=== PATIENT | female | born 1940 | race Caucasian/White ===

== ENCOUNTER 2022-04-20 10:49 | Observation (INO) ==
[2022-04-20 11:01] VITALS: BMI 29.1
[2022-04-20 11:43] LABS: BASOPHILS % (AUTO) 0.5 % (0.2-1.0); EOSINOPHILS # (AUTO) 0.1 x10^3/uL (0.0-0.2); EOSINOPHILS % (AUTO) 0.9 % (0.9-2.9); HEMATOCRIT 21.5 % (36.0-47.0); HEMOGLOBIN 7.3 g/dL (12.0-16.0); LYMPHOCYTES # (AUTO) 1.8 X10^3/uL (1.3-2.9); LYMPHOCYTES % (AUTO) 19.1 % (21.0-51.0); MEAN CORPUSCULAR HEMOGLOBIN 31.8 pg (27.0-34.0); MEAN CORPUSCULAR HGB CONC 33.8 g/dL (33.0-35.0); MEAN CORPUSCULAR VOLUME 94.1 fL (80.0-100.0); MEAN PLATELET VOLUME 7.7 fL (7.4-11.0); MONOCYTES # (AUTO) 0.8 x10^3/uL (0.3-0.8); MONOCYTES % (AUTO) 9.2 % (0.0-13.0); NEUTROPHILS # (AUTO) 6.5 x10^3/uL (2.2-4.8); NEUTROPHILS % (AUTO) 70.3 % (42.0-75.0); RED BLOOD COUNT 2.29 X10^6/uL (3.5-5.4); RED CELL DISTRIBUTION WIDTH 15.3 % (11.6-16.5); WHITE BLOOD COUNT 9.2 X10^3/uL (3.6-10.0)
[2022-04-20 11:53] LABS: ALBUMIN 2.9 g/dL (3.4-5.0); CALCIUM 7.7 mg/dL (8.5-10.1); CARBON DIOXIDE 31.5 mmol/L (21-32); COR CA(FOR HYPOALB) 8.6 mg/dL (8.5-10.1); CREATININE 1.14 mg/dL (0.55-1.02); TOTAL PROTEIN 5.5 g/dL (6.4-8.2)
[2022-04-20] MEDS: NS 1,000 ML IV 1,000 ML IV SCH (18:14)
[2022-04-20] MEDS: ZOFRAN INJ 4 MG VIAL IVP PRN (19:20)
[2022-04-20] MEDS ORDERED: BENADRYL CAP/TAB 25 MG PO PRN (19:25)
[2022-04-20] MEDS ORDERED: PERCOCET TAB 5/325 MG PO PRN (19:25)
[2022-04-20 20:13] LABS: HEMATOCRIT 21.4 % (36.0-47.0); HEMOGLOBIN 7.1 g/dL (12.0-16.0)
[2022-04-20] MEDS: PEPCID 20 MG VIAL 20 MG in NS 50 ML IV 50 ML IV SCH (21:17)
[2022-04-20] MEDS: PROTONIX INJ 40 MG VIAL IVP SCH (21:17)
[2022-04-20] MEDS: RESTORIL CAP 15 MG PO SCH (21:17)
[2022-04-20] MEDS ORDERED: PHENERGAN INJ 25 MG IM PRN (21:22)
[2022-04-20] MEDS: ATIVAN TAB 1 MG PO SCH (22:30)
[2022-04-21 05:58] LABS: BASOPHILS % (AUTO) 0.4 % (0.2-1.0); EOSINOPHILS # (AUTO) 0.1 x10^3/uL (0.0-0.2); EOSINOPHILS % (AUTO) 0.6 % (0.9-2.9); LYMPHOCYTES # (AUTO) 2.2 X10^3/uL (1.3-2.9); MEAN CORPUSCULAR HEMOGLOBIN 31.6 pg (27.0-34.0); MEAN CORPUSCULAR HGB CONC 33.9 g/dL (33.0-35.0); MEAN CORPUSCULAR VOLUME 93.2 fL (80.0-100.0); MEAN PLATELET VOLUME 8.4 fL (7.4-11.0); MONOCYTES # (AUTO) 0.7 x10^3/uL (0.3-0.8); NEUTROPHILS # (AUTO) 6.6 x10^3/uL (2.2-4.8); RED BLOOD COUNT 2.15 X10^6/uL (3.5-5.4); RED CELL DISTRIBUTION WIDTH 14.8 % (11.6-16.5); WHITE BLOOD COUNT 9.6 X10^3/uL (3.6-10.0)
[2022-04-21 06:03] LABS: ALANINE AMINOTRANSFERASE 16 Units/L (12-78); ALBUMIN 2.8 g/dL (3.4-5.0); ALKALINE PHOSPHATASE 33 Units/L (46-116); ASPARTATE AMINO TRANSFERASE 23 Units/L (15-37); BLOOD UREA NITROGEN 15 mg/dL (7-18); CALCIUM 7.8 mg/dL (8.5-10.1); CARBON DIOXIDE 31.4 mmol/L (21-32); CHLORIDE 108 mmol/L (98-107); COR CA(FOR HYPOALB) 8.8 mg/dL (8.5-10.1); CREATININE 0.91 mg/dL (0.55-1.02); SODIUM 145 mmol/L (136-145); TOTAL PROTEIN 5.2 g/dL (6.4-8.2); eGFR NON BLACK RACES > 60 (>60)
[2022-04-21 06:05] LABS: HEMOGLOBIN 6.8 g/dL (12.0-16.0)
[2022-04-21] MEDS: ATIVAN TAB 1 MG PO SCH ×2 (08:27→22:38)
[2022-04-21] MEDS ORDERED: DILTIAZEM HCL 120 MG PO SCH (09:00)
[2022-04-21] MEDS ORDERED: PATIENT'S HOME MEDICATION (Multivitamin Tablet) PO SCH (09:00)
[2022-04-21] MEDS ORDERED: MIRALAX POWDER (255 GRAMS BTL) PO SCH (09:00)
[2022-04-21] MEDS: PEPCID 20 MG VIAL 20 MG in NS 50 ML IV 50 ML IV SCH ×2 (09:27→20:14)
[2022-04-21] MEDS: PROTONIX INJ 40 MG VIAL IVP SCH ×2 (09:30→20:14)
--- NOTE | 2022-04-21 09:56 | DR.GIBLEED ---
HPI Time Seen Time Seen by Provider: 04/20/22 13:39 Primary Care Physician Primary Care Physician: VIVID Complaints Chief Complaint:: PT STARTED HAVING NAUSEA, VOMITING AND DIARRHEA ON 04/16/22. ON 04/18/22 SHE STARTED PASSING BRIGHT RED BLOOD FROM HER RECTUM AND WAS ADMITTED TO [facility]. PT'S HGB WENT FROM 11 TO 7.0 AND SHE WAS GIVEN ONE UNIT OF BLOOD. PT WAS DISCHARGED HOME YESTERDAY AND BLEEDING STARTED BACK THIS MORNING. DENIES ANY PAIN. COVID-19 Coronavirus risk:travel/contact w/high risk person: No Has patient experienced Coronavirus symptoms: No Source History Provided: Patient Mode of Arrival Mode of Arrival: Wheelchair Timing Onset of Chief Complaint: 04/16/22 Quality Vomitus: None Stools: Bright Red Blood PMH PMH Past Medical History: Yes Past Medical History: Anxiety, Arthritis, Depression, Dyslipidemia and GERD Past Medical History Comment: AFIB Past Surgical History: Yes Surgical History: Appendectomy, , Cholecystectomy, Hysterectomy and Other Past Surgical History Comment: PACEMAKER Family History History of Family Medical Conditions: No Family Medical History: Hypertension Social History Does patient currently use any type of tobacco product: No Have you used tobacco products in the last 12 months: No Type of Tobacco Use: None Does any household member use tobacco: No Alcohol Use: None Do you use any recreational Drugs:: No Lives With: Other Lives Where: Assisted Care Travel Risk Coronavirus risk:travel/contact w/high risk person: No Has patient experienced Coronavirus symptoms: No Infectious screening In the last 2 months have you had wt loss of >10#?: NO Have you had fever, night sweats or hemotysis?: No Have you traveled outside the country in the last 6 months?: No Isolation: Standard PE Vital Signs Vitals: Temperature 98.5 F Pulse Rate 71 Respiratory Rate 26 Blood Pressure 151/63 O2 Sat by Pulse Oximetry 98 ROR Labs Reviewed Result Diagrams: 04/21/22 05:14 04/21/22 05:14 Laboratory: WBC 9.2 X10^3/uL (3.6-10.0) 04/20/22 11:30 RBC 2.29 X10^6/uL (3.5-5.4) L 04/20/22 11:30 Hgb 7.3 g/dL (12.0-16.0) L 04/20/22 11:30 Hct 21.5 % (36.0-47.0) L 04/20/22 11:30 MCV 94.1 fL (80.0-100.0) 04/20/22 11:30 MCH 31.8 pg (27.0-34.0) 04/20/22 11:30 MCHC 33.8 g/dL (33.0-35.0) 04/20/22 11:30 RDW 15.3 % (11.6-16.5) 04/20/22 11:30 Plt Count 183 X10^3/uL (150.0-450.0) 04/20/22 11:30 MPV 7.7 fL (7.4-11.0) 04/20/22 11:30 Neut % (Auto) 70.3 % (42.0-75.0) 04/20/22 11:30 Lymph % (Auto) 19.1 % (21.0-51.0) L 04/20/22 11:30 [place] % (Auto) 9.2 % (0.0-13.0) 04/20/22 11:30 Eos % (Auto) 0.9 % (0.9-2.9) 04/20/22 11:30 Baso % (Auto) 0.5 % (0.2-1.0) 04/20/22 11:30 Neut # (Auto) 6.5 x10^3/uL (2.2-4.8) H 04/20/22 11:30 Lymph # (Auto) 1.8 X10^3/uL (1.3-2.9) 04/20/22 11:30 [place] # (Auto) 0.8 x10^3/uL (0.3-0.8) 04/20/22 11:30 Eos # (Auto) 0.1 x10^3/uL (0.0-0.2) 04/20/22 11:30 Baso # (Auto) 0.0 X10^3/uL (0.0-0.1) 04/20/22 11:30 Absolute Nucleated RBC 0.3 /100WBC 04/20/22 11:30 Sodium 146 mmol/L (136-145) H 04/20/22 11:30 Corrected Sodium 146 mmol/L (136-145) H 04/20/22 11:30 Potassium 3.5 mmol/L (3.5-5.1) 04/20/22 11:30 Chloride 111 mmol/L (98-107) H 04/20/22 11:30 Carbon Dioxide 31.5 mmol/L (21-32) 04/20/22 11:30 BUN 20 mg/dL (7-18) H 04/20/22 11:30 Creatinine 1.14 mg/dL (0.55-1.02) H 04/20/22 11:30 Est GFR (MDRD) Af Amer 58 (>60) L 04/20/22 11:30 Est GFR (MDRD) Non-Af 48 (>60) L 04/20/22 11:30 Glucose 117 mg/dL (65-99) H 04/20/22 11:30 Calcium 7.7 mg/dL (8.5-10.1) L 04/20/22 11:30 Corrected Calcium 8.6 mg/dL (8.5-10.1) 04/20/22 11:30 Total Bilirubin 0.40 mg/dL (0.2-1.0) 04/20/22 11:30 AST 21 Units/L (15-37) 04/20/22 11:30 ALT 17 Units/L (12-78) 04/20/22 11:30 Alkaline Phosphatase 36 Units/L (46-116) L 04/20/22 11:30 Total Protein 5.5 g/dL (6.4-8.2) L 04/20/22 11:30 Albumin 2.9 g/dL (3.4-5.0) L 04/20/22 11:30 Globulin 2.6 g/dL (2.5-4.5) 04/20/22 11:30 Albumin/Globulin Ratio 1.1 Ratio (1.1-2.1) 04/20/22 11:30 Opioid Opioid Risk Tool Age (Ulises box if 16-45): No History of Preadolescent Sexual Abuse: No Total: 0 Total Score Risk Category: Low Risk Copyright: Deni CASTILLO predicting aberrant behaviors Discharge Plan Diagnosis Discharge Problem: Acute lower gastrointestinal bleeding Discharge Plan Patient Disposition: 09 ADMITTED INPATIENT Condition: Stable
[2022-04-21] MEDS: ZOFRAN INJ 4 MG VIAL IVP PRN ×2 (11:35→20:14)
[2022-04-21] MEDS ORDERED: DIPRIVAN VIAL 20 ML ONE (12:19)
[2022-04-21] MEDS ORDERED: PEPCID 20 MG VIAL ONE (12:27)
[2022-04-21] MEDS ORDERED: REGLAN INJ 10 MG VIAL ONE (12:29)
--- NOTE | 2022-04-21 13:24 | DR.H&P ---
H&P - History & Physical for Day of: H&P Date: 04/20/22 - Chief Complaint Chief Complaint: NAUSEA, VOMITING, DIARRHEA, RECTAL BLEEDING - History of Present Illness History of Present Illness: IS AN 82 YEAR OLD WHITE FEMALE. SHE PRESE NTED TO THE ER WITH COMPLAINTS OF NAUSEA, VOMITING, AND DIARRHEA SINCE 04/16/22. PATIENTS DAUGHTER REPORTS THAT ON 04/18/22, PATIENT BEGAN TO PASS BRIGHT RED BLOOD FROM HER RECTUM. SHE WAS ADMITTED TO [facility] AND WAS TRANSFUSED WITH 1 UNIT OF PACKED RED BLOOD CELLS DUE TO HEMOGLOBIN DROPPING FROM 11 TO 7.0. HER HEMOGLOBIN INCREASED TO 7.8 AND HEMATOCRIT INCREASED TO 23.2. FOLLOWING TRANSFUSION, PATIENT WAS DISCHARGED HOME AND INSTRUCTED TO FOLLOW-UP WITH GASTROENTEROLOGY. PATIENTS DAUGTER REPORTS THAT AFTER RETURNING HOME, PATIENT CONTINUED TO PASS BRIGHT RED BLOOD FROM THE RECTUM. PATIENT COMPLAINED OF INCREASED WEAKNESS, FATIGUE, AND NAUSEA, BUT DENIED PAIN. HER PMH INCLUDES: ARTHRITIS, ANXIETY, DEPRESSION, DYSLIPIDEMIA, GERD, A-FIB, APPENDECTOMY, C- SECTION, CHOLECYSTECTOMY, HYSTERECTOMY, AND PACEMAKER. ON ARRIVAL TO THE HOSPITAL, HER VITALS WERE 98.5-91-22-99%-175/75. LABS WERE OBTAINED. WBC 9.2, RBC 2.29, HGB 7.3, HCT 21.5, PLT COUNT 183, SODIUM 146, POTASSIUM 3.5, CHLORIDE 111, BUN 20, CREATININE 1.14, GLUCOSE 117, CALCIUM 7.7, TOTAL BILI 0.40, AST 21, ALT 17, ALK PHOS 36, TOTAL PROTEIN 5.5, ALBUMIN 2.9. DECISION WAS MADE TO ADMIT PATIENT TO THE HOSPITAL OBSERVATION STATUS FOR TREATMENT OF ACUTE ANEMIA, GI BLEED. WE WILL CONSULT FOR POSSIBLE ENDOSCOPY. SHE WAS STARTED ON NORMAL SALINE AT KVO, PEPCID 20MG IV Q12H, PROTONIX 40MG IV BID, PHENERGAN 12.5MG IM Q6H PRN, AND ZOFRAN 4MG IV Q6H PRN. HER HOME MEDICATIONS OF BUMEX, COREG, CARDIZEM, COLACE, ATIVAN, ANTIVERT, PERCOCET, MIRALAX, POTASSIUM CHLORIDE ZOLOFT, AND RESTORIL WERE RESUMED. OTHERWISE, WE WILL MONITOR H&H AND TRANSFUSE TWO UNITS OF PACKED RED BLOOD CELLS IF HEMOGLOBIN DROPS BELOW 7.0. TIME SPENT ON CLINICAL ASSESSMENT, REVIWING LABS AND IMAGING, DECISION MAKING, AND DOCUMENTA TION GREATER THAN 75 MINUTES. AT 20:00 ON 04/20, HEMOGLOBIN WAS 7.1, HEMATOCRIT WAS 21.4. AT 05:14 ON 04/21/22, HEMOGLOBIN HAD DROPPED TO 6.8, HEMATOCRIT DROPPED TO 20.0. WE WILL TRANSFUSE TWO UNITS OF PACKED RED BLOOD CELLS TODAY. - Past Medical History Past Medical History: Dyslipidemia, Depression, Anxiety, GERD, Arthritis Additional Medical History: A-FIB - Past Surgical History Surgical History: Appendectomy, Cholecystectomy, , Hysterectomy, Other - Family History Family Medical History: Hypertension - Social History Does patient currently use any type of tobacco product: No Have you used tobacco products in the last 12 months: No Type of Tobacco Use: None Does any household member use tobacco: No Alcohol Use: None Drug Use: None - Medications Home Medications: amitriptyline Allergy (Verified 04/20/22 11:01) lorazepam [From Ativan] Adverse Reaction (Verified 04/20/22 11:01) CONTINUE taking the following medications aspirin 81 mg tablet 81 mg PO DAILY 04/20/22 [History] bumetanide 1 mg tablet 1 mg PO DAILY 04/20/22 [History] carvedilol 3.125 mg tablet (Coreg) 3.125 mg PO DAILY 04/20/22 [History] diclofenac 1.5 % solution-lidocaine 3.88 % cream-tape in topical kit 1 ea topical DAILY 04/20/22 [History] diltiazem HCl 120 mg tablet (Cardizem) 120 mg PO DAILY 04/20/22 [History] diphenhydramine HCl 25 mg capsule (Benadryl) 25 mg PO Q4H PRN 04/20/22 [History] docusate sodium 100 mg capsule (Colace) 100 mg PO DAILY 04/20/22 [History] famotidine 40 mg tablet (Pepcid) 40 mg PO BID 04/20/22 [History] lorazepam 1 mg tablet (Ativan) 1 mg PO BID 04/20/22 [History] meclizine 25 mg tablet 25 mg PO DAILY 04/20/22 [History] multivitamin 1 tab PO DAILY 04/20/22 [History] omeprazole 20 mg capsule,delayed release 20 mg PO DAILY 04/20/22 [History] oxycodone-acetaminophen 5 mg-325 mg tablet 1 tab PO Q4HR PRN 04/20/22 [History] polyethylene glycol 3350 17 gram/dose oral powder (Miralax) 17 g PO DAILY 04/20/22 [History] potassium chloride 10 mEq tablet,extended release 10 meq PO DAILY 04/20/22 [H istory] sertraline 100 mg tablet (Zoloft) 100 mg PO DAILY 04/20/22 [History] temazepam 15 mg capsule 15 mg PO HS 04/20/22 [History] - Review of Systems Constitutional: See HPI, Weakness. denies: Fever, Chills Eyes: No Symptoms Reported ENT: No Symptoms Reported Respiratory: No Symptoms Reported Cardiovascular: Light Headedness Gastrointestinal: See HPI, Nausea, Vomiting, Diarrhea, Hematochezia Genitourinary: No Symptoms Reported Musculoskeletal: No Symptoms Reported Skin: No Symptoms Reported Neurological: Weakness - Physical Exam Vital Signs: Temperature 97.5 F Pulse Rate [Bilateral Radial] 76 Pulse Rate 71 Respiratory Rate 20 Blood Pressure [Right Arm] 187/77 Blood Pressure 151/63 O2 Sat by Pulse Oximetry 95 Oriented: Normal Eyes: Normal Ear: Normal Nose: Normal Throat: Normal Respiratory: Clear Throughout Cardiovascular: Normal : Normal Auscultation: Bowel Sounds: Normal Palpation: Normal Tenderness: Normal Skin: Decreased Turgur Musculoskeletal: Normal Psychiatric: Normal Mood Description: Calm Affect: Normal Speech Pattern: Clear - Assessment/Plan (1) Symptomatic anemia Status: Acute Plan: ADMIT, MONITOR H&H, CONSULT GASTROENTEROLOGY, NORMAL SALINE AT KVO, PEPCID 20MG IV Q12H, PROTONIX 40MG IV BID, PHENERGAN 12.5MG IM Q6H PRN, AND ZOFRAN 4MG IV Q6H PRN. HER HOME MEDICATIONS OF BUMEX, COREG, CARDIZEM, COLACE, ATIVAN, ANTIVERT, PERCOCET, MIRALAX, POTASSIUM CHLORIDE ZOLOFT, AND RESTORIL WERE RESUMED. (2) Acute lower gastrointestinal bleeding Status: Acute (3) Dehydration, mild Status: Acute (4) Nausea Status: Acute (5) Anxiety and depression Status: Chronic (6) GERD (gastroesophageal reflux disease) Qualifiers: Esophagitis presence: esophagitis presence not specified Qualified Code(s): K21.9 - Gastro-esophageal reflux disease without esophagitis Status: Chronic (7) Hyperlipidemia Qualifiers: Hyperlipidemia type: mixed hyperlipidemia Qualified Code(s): E78.2 - Mixed hyperlipidemia Status: Chronic (8) Chronic a-fib Status: Chronic - Allergies Allergies/Adverse Reactions: Allergies Allergy/AdvReac Type Severity Reaction Status Date / Time amitriptyline Allergy Verified 04/20/22 11:01 lorazepam [From Ativan] AdvReac Verified 04/20/22 11:01
[2022-04-21] MEDS ORDERED: ZOLOFT ONE (15:12)
[2022-04-21] MEDS: BUMEX TAB 1 MG PO SCH ×3 (15:15→20:22)
[2022-04-21] MEDS: CARDIZEM CD 120 MG 24-HR PO SCH ×3 (15:16→20:22)
[2022-04-21] MEDS: COREG TAB 3.125 MG PO SCH ×2 (15:16→15:43)
[2022-04-21] MEDS: ANTIVERT TAB 25 MG PO SCH (15:42)
[2022-04-21] MEDS: MICRO K EXTEN CAP 10 MEQ PO SCH (15:43)
[2022-04-21] MEDS: COLACE CAP 100 MG PO SCH (15:43)
[2022-04-21] MEDS: TAB-A-VITE PO SCH (17:54)
[2022-04-21] MEDS: ZOLOFT PO SCH (17:55)
[2022-04-21] MEDS: REGLAN INJ 10 MG VIAL IVP SCH ×3 (18:09→22:43)
[2022-04-21] MEDS: NS 1,000 ML IV 1,000 ML IV SCH (18:39)
[2022-04-21] MEDS: RESTORIL CAP 15 MG PO SCH (20:15)
[2022-04-22 02:24] LABS: HEMATOCRIT 29.5 % (36.0-47.0)
[2022-04-22 06:13] LABS: BASOPHILS % (AUTO) 0.3 % (0.2-1.0); EOSINOPHILS # (AUTO) 0.1 x10^3/uL (0.0-0.2); EOSINOPHILS % (AUTO) 0.5 % (0.9-2.9); HEMATOCRIT 29.7 % (36.0-47.0); HEMOGLOBIN 10.2 g/dL (12.0-16.0); LYMPHOCYTES # (AUTO) 2.5 X10^3/uL (1.3-2.9); MEAN CORPUSCULAR HEMOGLOBIN 28.2 pg (27.0-34.0); MEAN CORPUSCULAR HGB CONC 34.3 g/dL (33.0-35.0); MEAN CORPUSCULAR VOLUME 82.4 fL (80.0-100.0); MEAN PLATELET VOLUME 7.6 fL (7.4-11.0); MONOCYTES # (AUTO) 0.9 x10^3/uL (0.3-0.8); MONOCYTES % (AUTO) 7.9 % (0.0-13.0); NEUTROPHILS # (AUTO) 8.2 x10^3/uL (2.2-4.8); NEUTROPHILS % (AUTO) 70.3 % (42.0-75.0); RED BLOOD COUNT 3.61 X10^6/uL (3.5-5.4); RED CELL DISTRIBUTION WIDTH 24.2 % (11.6-16.5); WHITE BLOOD COUNT 11.7 X10^3/uL (3.6-10.0)
[2022-04-22 06:27] LABS: ALKALINE PHOSPHATASE 37 Units/L (46-116); ASPARTATE AMINO TRANSFERASE 29 Units/L (15-37); BLOOD UREA NITROGEN 13 mg/dL (7-18); CALCIUM 7.5 mg/dL (8.5-10.1); CHLORIDE 102 mmol/L (98-107); SODIUM 140 mmol/L (136-145); eGFR NON BLACK RACES > 60 (>60)
[2022-04-22 06:43] LABS: ANISOCYTOSIS 3+; PLATELET MORPHOLOGY COMMENT NORMAL (NORMAL)
[2022-04-22 07:01] LABS: ALANINE AMINOTRANSFERASE 22 Units/L (12-78); ALBUMIN 2.9 g/dL (3.4-5.0); CARBON DIOXIDE 31.5 mmol/L (21-32); COR CA(FOR HYPOALB) 8.4 mg/dL (8.5-10.1); CREATININE 0.94 mg/dL (0.55-1.02); TOTAL PROTEIN 5.4 g/dL (6.4-8.2)
[2022-04-22] MEDS: ANTIVERT TAB 25 MG PO SCH (09:26)
[2022-04-22] MEDS: ATIVAN TAB 1 MG PO SCH ×2 (09:27→20:53)
[2022-04-22] MEDS: MIRALAX POWDER (1 DOSE 17 G) PO SCH (09:27)
[2022-04-22] MEDS: BUMEX TAB 1 MG PO SCH (09:27)
[2022-04-22] MEDS: COLACE CAP 100 MG PO SCH (09:27)
[2022-04-22] MEDS: PEPCID 20 MG VIAL 20 MG in NS 50 ML IV 50 ML IV SCH ×2 (09:35→20:53)
[2022-04-22] MEDS: PROTONIX INJ 40 MG VIAL IVP SCH ×2 (09:37→20:53)
[2022-04-22] MEDS: ZOFRAN INJ 4 MG VIAL IVP PRN (09:38)
[2022-04-22] MEDS: REGLAN INJ 10 MG VIAL IVP SCH ×4 (09:38→20:53)
[2022-04-22] MEDS: MICRO K EXTEN CAP 10 MEQ PO SCH (09:40)
[2022-04-22] MEDS: TAB-A-VITE PO SCH (09:41)
[2022-04-22] MEDS ORDERED: DECADRON INJ IVP ONE (12:00)
--- NOTE | 2022-04-22 13:26 | CT ---
HISTORYRLQ PAINSTUDYCT abdomen pelvis without IV contrastCOMPARISONCT 04/18/2022TECHNIQUEMultiple axial images of the abdomen and pelvis were obtained from the lung bases to the pubic symphysis without the administration of IV contrast. Dose reduction techniques including Automated Exposure Control (AEC) and adjustment of mA and kV were utilized.FINDINGSThe visualized portions of the lung bases suggest possible CHF and mild pulmonary edema.The liver and spleen display no abnormalities.Prior cholecystectomy. No biliary ductal dilation.No pancreatic abnormality is seen.The adrenal glands appear normal.Stable small cyst is seen in the superior pole of the right kidney. There is a stable appearing parapelvic left renal cyst. No nephrolithiasis or hydronephrosis is seen. No ureteral stones are seen but a few phleboliths are seen in the pelvis. There is no bladder wall thickening but there is dilation of the bladder. It measures 9.9 x 12.7 x 9.6 cm. Correlation with urine output is recommended.There is slight prominence of soft tissues in the region of the anus. This may be due to underdistention or fecal material and is a changed appearance since prior study. Distal rectal mass is not completely excluded but not likely. Appendix is not seen but no pericecal inflammation is seen.No adnexal masses are seen.Abdominal aorta is normal in size.No suspicious lymphadenopathy.No free intraperitoneal air or fluid is seen.No acute bony abnormality is seen. 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 Correlation with urine output is recommended.New soft tissue prominence is suspected in the distal rectum near the anus. This may just be fecal material as it is a changed appearance since 4 days ago. Rectal mass is not completely excluded.Possible CHF and mild pulmonary edema.Clinics is not discretely identified but no right lower quadrant inflammation is seen.Electronically signed by: Scotty Angelo (Apr 22, 2022 13:24:26)
[2022-04-22] MEDS: CARDIZEM CD 120 MG 24-HR PO SCH (14:28)
[2022-04-22] MEDS: COREG TAB 3.125 MG PO SCH (14:28)
[2022-04-22] MEDS: ZOLOFT PO SCH (14:28)
[2022-04-22] MEDS ORDERED: POTASSIUM CHLORIDE LIQ 20 MEQ UDC PO PRN (14:36)
[2022-04-22] MEDS ORDERED: K-DUR TAB 20 MEQ PO PRN (14:36)
[2022-04-22] MEDS ORDERED: MICRO K EXTEN CAP 10 MEQ PO PRN (14:36)
[2022-04-22] MEDS ORDERED: KLOR-CON PO PRN (14:36)
[2022-04-22] MEDS ORDERED: POTASSIUM CHL 40 MEQ/NS 0.45% 500 ML IV PRN (14:36)
[2022-04-22] MEDS ORDERED: POTASSIUM CHL 60 MEQ/NS 0.45% 500 ML IV PRN (14:36)
[2022-04-22] MEDS: K-RIDER 10 MEQ/NS 100 ML 10 MEQ/100 ML BAG IV PRN ×6 (15:04→21:45)
[2022-04-22] MEDS: NS 1,000 ML IV 1,000 ML IV SCH ×2 (18:54→19:42)
[2022-04-22] MEDS: RESTORIL CAP 15 MG PO SCH (20:53)
[2022-04-22] MEDS: ZOFRAN TAB 4 MG PO PRN (20:53)
--- NOTE | 2022-04-22 21:24 | PCM.PROG ---
Progress Note - Progress Note for Day of Date of Exam: 04/22/22 - Subjective Subjective: The patient is an 82yo Wf was admitted due to anemia and GI bleed. Family at bedside and gives history of patient having been had sudden onset of weakness and GI bleed. Describes as bright red blood. States she is having pain to RLQ. Gives history of diverticulitis. States has not had visible blood today. Patient complains of nausea and associated with chronic dizziness. No other complaints voiced. - Past Medical Family Social History Past Med/Fam/Surg Hx: No changes since H&P Allergies: Allergies amitriptyline Allergy (Verified 04/20/22 11:01) lorazepam [From Ativan] Adverse Reaction (Verified 04/20/22 11:01) - Review of Systems ROS: No change since H&P - Vital Signs and I&O's Vital Signs: Temperature 97.8 F Pulse Rate [Bilateral Radial] 85 Pulse Rate 71 Respiratory Rate 20 Blood Pressure [Right Arm] 152/67 Blood Pressure 151/63 O2 Sat by Pulse Oximetry 95 Intake and Output: Intake & Output 04/19/22 04/20/22 04/21/22 04/22/22 23:59 23:59 23:59 23:59 Intake Total 206 / 206 1275 / 1275 1154 / 1154 Balance 206 / 206 1275 / 1275 1154 / 1154 - Physical Exam Oriented: Normal Eyes: Normal Ear: Normal (hard of hearing) Nose: Normal Throat: Normal Cardiovascular: Normal : Normal Auscultation: Bowel Sounds: Normal Tenderness: RLQ Skin: Decreased Turgur Musculoskeletal: Normal Psychiatric: Normal Mood Description: Calm Affect: Normal Speech Pattern: Clear, Appropriate - Laboratory and Diagnostics Result Diagrams: 04/22/22 05:54 04/22/22 05:54 Labs: Laboratory WBC 11.7 X10^3/uL (3.6-10.0) H 04/22/22 05:54 RBC 3.61 X10^6/uL (3.5-5.4) 04/22/22 05:54 Hgb 10.2 g/dL (12.0-16.0) L 04/22/22 05:54 Hct 29.7 % (36.0-47.0) L 04/22/22 05:54 MCV 82.4 fL (80.0-100.0) 04/22/22 05:54 MCH 28.2 pg (27.0-34.0) 04/22/22 05:54 MCHC 34.3 g/dL (33.0-35.0) 04/22/22 05:54 RDW 24.2 % (11.6-16.5) H 04/22/22 05:54 Plt Count 193 X10^3/uL (150.0-450.0) 04/22/22 05:54 Plt Count Comment Adequate (ADEQUATE) 04/22/22 05:54 MPV 7.6 fL (7.4-11.0) 04/22/22 05:54 Neut % (Auto) 70.3 % (42.0-75.0) 04/22/22 05:54 Lymph % (Auto) 21.0 % (21.0-51.0) 04/22/22 05:54 [place] % (Auto) 7.9 % (0.0-13.0) 04/22/22 05:54 Eos % (Auto) 0.5 % (0.9-2.9) L 04/22/22 05:54 Baso % (Auto) 0.3 % (0.2-1.0) 04/22/22 05:54 Neut # (Auto) 8.2 x10^3/uL (2.2-4.8) H 04/22/22 05:54 Lymph # (Auto) 2.5 X10^3/uL (1.3-2.9) 04/22/22 05:54 [place] # (Auto) 0.9 x10^3/uL (0.3-0.8) H 04/22/22 05:54 Eos # (Auto) 0.1 x10^3/uL (0.0-0.2) 04/22/22 05:54 Baso # (Auto) 0.0 X10^3/uL (0.0-0.1) 04/22/22 05:54 Absolute Nucleated RBC 0.5 /100WBC 04/22/22 05:54 Plt Morphology Comment Normal (NORMAL) 04/22/22 05:54 RBC Morphology Abnormal (NORMAL) A 04/22/22 05:54 Dimorphic RBCs 1+ 04/22/22 05:54 Anisocytosis 3+ A 04/22/22 05:54 Sodium 140 mmol/L (136-145) 04/22/22 05:54 Corrected Sodium TNP 04/22/22 05:54 Potassium 3.0 mmol/L (3.5-5.1) L 04/22/22 05:54 Chloride 102 mmol/L (98-107) 04/22/22 05:54 Carbon Dioxide 31.5 mmol/L (21-32) 04/22/22 05:54 BUN 13 mg/dL (7-18) 04/22/22 05:54 Creatinine 0.94 mg/dL (0.55-1.02) 04/22/22 05:54 Est GFR (MDRD) Af Amer > 60 (>60) 04/22/22 05:54 Est GFR (MDRD) Non-Af > 60 (>60) 04/22/22 05:54 Glucose 84 mg/dL (65-99) 04/22/22 05:54 Calcium 7.5 mg/dL (8.5-10.1) L 04/22/22 05:54 Corrected Calcium 8.4 mg/dL (8.5-10.1) L 04/22/22 05:54 Magnesium 1.7 mg/dL (2.0-2.9) L 04/22/22 14:50 Total Bilirubin 1.00 mg/dL (0.2-1.0) 04/22/22 05:54 AST 29 Units/L (15-37) 04/22/22 05:54 ALT 22 Units/L (12-78) 04/22/22 05:54 Alkaline Phosphatase 37 Units/L (46-116) L 04/22/22 05:54 Total Protein 5.4 g/dL (6.4-8.2) L 04/22/22 05:54 Albumin 2.9 g/dL (3.4-5.0) L 04/22/22 05:54 Globulin 2.5 g/dL (2.5-4.5) 04/22/22 05:54 Albumin/Globulin Ratio 1.2 Ratio (1.1-2.1) 04/22/22 05:54 Stl Occult Blood (IFOB) Positive (NEGATIVE) A 04/20/22 22:05 Blood Type A NEGATIVE 04/21/22 06:20 Antibody Screen Negative 04/21/22 06:20 Crossmatch See Detail 04/21/22 06:20 - Plan (1) Dizziness Status: Acute Plan: Decadron 10mg IVPB x 1 dose. (2) Dehydration, mild Status: Acute (3) Acute lower gastrointestinal bleeding Status: Acute Plan: Monitor Hgb. Monitor stool. (4) Symptomatic anemia Status: Acute Plan: MONITOR H&H, CONSULT GASTROENTEROLOGY, NORMAL SALINE AT KVO, PEPCID 20MG IV Q12H, PROTONIX 40MG IV BID, PHENERGAN 12.5MG IM Q6H PRN, AND ZOFRAN 4MG IV Q6H PRN. HER HOME MEDICATIONS OF BUMEX, COREG, CARDIZEM, COLACE, ATIVAN, ANTIVERT, PERCOCET, MIRALAX, POTASSIUM CHLORIDE ZOLOFT, AND RESTORIL WERE RESUMED. (5) Nausea Status: Acute Plan: Zofran 8mg po every 6hrs prn. (6) Chronic a-fib Status: Chronic Plan: Continue cardizem.
[2022-04-22] MEDS: MAGNESIUM SULFATE 1 GRAM/100 mL PREMIX 1 G/100 ML BAG IV PRN ×2 (22:49→23:53)
[2022-04-23 03:14] LABS: EOSINOPHILS # (AUTO) 0.1 x10^3/uL (0.0-0.2); HEMOGLOBIN 9.8 g/dL (12.0-16.0); MONOCYTES # (AUTO) 0.8 x10^3/uL (0.3-0.8); RED BLOOD COUNT 3.45 X10^6/uL (3.5-5.4)
[2022-04-23 03:18] LABS: BASOPHILS # (AUTO) 0.1 X10^3/uL (0.0-0.1); BASOPHILS % (AUTO) 0.6 % (0.2-1.0); EOSINOPHILS % (AUTO) 1.1 % (0.9-2.9); LYMPHOCYTES # (AUTO) 2.1 X10^3/uL (1.3-2.9); LYMPHOCYTES % (AUTO) 19.7 % (21.0-51.0); MEAN CORPUSCULAR HEMOGLOBIN 28.4 pg (27.0-34.0); MEAN CORPUSCULAR HGB CONC 33.8 g/dL (33.0-35.0); MEAN PLATELET VOLUME 7.6 fL (7.4-11.0); MONOCYTES % (AUTO) 7.6 % (0.0-13.0); NEUTROPHILS # (AUTO) 7.5 x10^3/uL (2.2-4.8); RED CELL DISTRIBUTION WIDTH 23.5 % (11.6-16.5); WHITE BLOOD COUNT 10.6 X10^3/uL (3.6-10.0)
[2022-04-23 03:24] LABS: ALANINE AMINOTRANSFERASE 20 Units/L (12-78); ALBUMIN 2.7 g/dL (3.4-5.0); ALKALINE PHOSPHATASE 34 Units/L (46-116); ASPARTATE AMINO TRANSFERASE 21 Units/L (15-37); BLOOD UREA NITROGEN 10 mg/dL (7-18); CALCIUM 7.6 mg/dL (8.5-10.1); CARBON DIOXIDE 30.3 mmol/L (21-32); CHLORIDE 105 mmol/L (98-107); COR CA(FOR HYPOALB) 8.6 mg/dL (8.5-10.1); CREATININE 0.94 mg/dL (0.55-1.02); MAGNESIUM 2.4 mg/dL (2.0-2.9); SODIUM 140 mmol/L (136-145); TOTAL PROTEIN 5.1 g/dL (6.4-8.2); eGFR NON BLACK RACES > 60 (>60)
[2022-04-23 03:26] LABS: ANISOCYTOSIS 2+; PLATELET MORPHOLOGY COMMENT NORMAL (NORMAL)
[2022-04-23] MEDS: K-RIDER 10 MEQ/NS 100 ML 10 MEQ/100 ML BAG IV PRN ×2 (03:32→04:44)
[2022-04-23] MEDS ORDERED: ZOLOFT ONE (09:02)
[2022-04-23] MEDS: MIRALAX POWDER (1 DOSE 17 G) PO SCH (09:27)
[2022-04-23] MEDS: REGLAN INJ 10 MG VIAL IVP SCH ×2 (09:27→13:40)
[2022-04-23] MEDS: PROTONIX INJ 40 MG VIAL IVP SCH (09:27)
[2022-04-23] MEDS: PEPCID 20 MG VIAL 20 MG in NS 50 ML IV 50 ML IV SCH (09:27)
[2022-04-23] MEDS: COREG TAB 3.125 MG PO SCH (09:28)
[2022-04-23] MEDS: TAB-A-VITE PO SCH (09:28)
[2022-04-23] MEDS: CARDIZEM CD 120 MG 24-HR PO SCH (09:28)
[2022-04-23] MEDS: BUMEX TAB 1 MG PO SCH (09:28)
[2022-04-23] MEDS: MICRO K EXTEN CAP 10 MEQ PO SCH (09:28)
[2022-04-23] MEDS: ZOLOFT PO SCH (09:28)
[2022-04-23] MEDS: ANTIVERT TAB 25 MG PO SCH (09:29)
[2022-04-23] MEDS: COLACE CAP 100 MG PO SCH (09:30)
[2022-04-23] MEDS: ZOFRAN TAB 4 MG PO PRN (10:23)
[2022-04-23] MEDS: ATIVAN TAB 1 MG PO SCH (11:01)
[2022-04-23 15:08] VITALS: BP 164/70
== END 2022-04-23 16:00 | disposition home or self-care (01) ==
LOC: ER 10:49 → MED/SURG 10:49
PROVIDERS: ADMIT Internal Medicine; ATTEND Internal Medicine
DX: D64.89 Other specified anemias; R11.2 Nausea with vomiting, unspecified; K44.9 Diaphragmatic hernia without obstruction or gangrene; K92.1 Melena; K21.00 Gastro-esophageal reflux disease with esophagitis, without bleeding; R10.31 Right lower quadrant pain; K29.01 Acute gastritis with bleeding; F32.89 Other specified depressive episodes; F41.8 Other specified anxiety disorders; I48.20 Chronic atrial fibrillation, unspecified; R42 Dizziness and giddiness; R19.7 Diarrhea, unspecified; E86.0 Dehydration; E78.2 Mixed hyperlipidemia